=== PATIENT | male | born 1965 | race African-American/Black ===

== ENCOUNTER 2020-09-07 11:06 | Emergency (ER) | payer OTHER ==
[~2020-09-07] VITALS: Ht 170.2 cm; Wt 75.0 kg
[~2020-09-07 11:06] MED LIST: Bisacodyl PO; CLIN300C12 MT; Docusate Sodium PO; HYDR25SU38 RC; MED4 MT; OMEP20CA14 PO
[2020-09-07 11:18] VITALS: BP 134/89
== END 2020-09-07 15:14 | disposition left against medical advice (07) ==
LOC: ER 11:06
DX: Z53.21 Procedure and treatment not carried out due to patient leaving prior to being seen by health care provider (principal)

== ENCOUNTER 2024-01-13 09:47 | Emergency (ER) | payer OTHER ==
[~2024-01-13] VITALS: Ht 170.2 cm; Wt 107.0 kg
[~2024-01-13 09:47] MED LIST changes: +CLIN-194 MT; -CLIN300C12 MT; -MED4 MT; +METH4TAB95 MT
[2024-01-13 09:53] VITALS: O2SAT 97
[2024-01-13 09:56] VITALS: BP 143/83; PULSE 77; RESP 16; TEMP 98.4; O2SAT 100
[2024-01-13] MEDS: ACETAMINOPHEN 500MG TABLET PO ONE (13:38)
[2024-01-13] MEDS ORDERED: ACET-2708 MT (13:38)
== END 2024-01-13 14:16 | disposition home or self-care (01) ==
LOC: ER 09:47
DX: M25.562 Pain in left knee (principal); I10 Essential (primary) hypertension; J45.909 Unspecified asthma, uncomplicated; Z79.899 Other long term (current) drug therapy
CPT/HCPCS: 73562; 99283

== ENCOUNTER 2024-03-28 14:22 | Emergency (ER) | payer MEDICAID, OTHER ==
[~2024-03-28] VITALS: Ht 170.2 cm; Wt 108.0 kg
[~2024-03-28 14:22] MED LIST changes: +ACET-2708 MT
[2024-03-28 14:26] VITALS: O2SAT 100
[2024-03-28 14:27] VITALS: BP 141/82; PULSE 105; RESP 16; TEMP 36.8; O2SAT 98
[2024-03-28 15:35] LABS: BASOPHILS % 0.6 % (0.0-2.0); EOSINOPHILS % 4.4 % (0.0-5.0); HEMATOCRIT. 38.2 % (42.0-52.0); HEMOGLOBIN. 12.2 g/dL (14.0-18.0); LYMPHOCYTES % 24.8 % (20.0-50.0); MEAN CORPUSCULAR HEMOGLOBIN 26.2 pg (28.0-32.0); MEAN CORPUSCULAR VOLUME 81.9 fL (80.0-94.0); MONOCYTES % 10.9 % (2.0-8.0); NEUTROPHILS % 59.3 % (40.0-76.0); PLATELET 263 x1000/uL (130-400); RED BLOOD CELL COUNT 4.66 mill/uL (4.7-6.1); RED CELL DISTRIBUTION WIDTH 18.2 % (11.6-14.6); WHITE BLOOD COUNT 6.5 x1000/uL (4.5-11.0)
[2024-03-28 15:50] LABS: CHLORIDE 107 mEq/L (98-107); POTASSIUM 4.1 mEq/L (3.5-5.1); SODIUM 140 mEq/L (136-145)
[2024-03-28 15:51] LABS: CARBON DIOXIDE 26 mEq/L (21-32)
[2024-03-28 15:52] LABS: CALCIUM 9.1 mg/dL (8.7-10.4)
[2024-03-28 15:57] LABS: GLUCOSE 259 mg/dL (70-105); UREA NITROGEN BLOOD 12 mg/dL (9-23)
[2024-03-28 18:15] LABS: CLARITY URINE CLEAR (CLEAR); COLOR URINE YELLOW (YELLOW); GLUCOSE URINE 3+ (NEGATIVE); KETONES URINE NEGATIVE (NEGATIVE); LEUKOCYTE ESTERASE URINE NEGATIVE (NEGATIVE); NITRITE URINE NEGATIVE (NEGATIVE); OCCULT BLOOD URINE NEGATIVE (NEGATIVE); PH URINE 5.5 (4.5-8.0); PROTEIN URINE NEGATIVE (NEGATIVE); SPECIFIC GRAVITY URINE 1.042 (1.005-1.030); UROBILINOGEN URINE 0.2 E.U./dL (0.2-1.0)
[2024-03-28] MEDS ORDERED: ALBU18HF2 IH (18:32)
[2024-03-28] MEDS ORDERED: GUAI-450 MT (18:32)
[2024-03-28] MEDS ORDERED: P50 MT (18:32)
[2024-03-28 19:23] LABS: BACTERIA URINE 1+; SQUAMOUS EPITHELIAL CELL URINE 1+ /lpf (RARE/1+)
[2024-03-28 19:24] LABS: RBC URINE 0-2 /hpf (0-2); YEAST URINE FEW
== END 2024-03-28 18:44 | disposition home or self-care (01) ==
LOC: ER 14:22
DX: J20.9 Acute bronchitis, unspecified (principal); I10 Essential (primary) hypertension; J45.909 Unspecified asthma, uncomplicated; Z79.899 Other long term (current) drug therapy
CPT/HCPCS: 36415; 71045; 80048; 81003; 85025; 99284

== ENCOUNTER 2024-04-03 14:57 | Emergency (ER) | payer MEDICAID, OTHER ==
[~2024-04-03] VITALS: Ht 170.2 cm; Wt 111.6 kg
[~2024-04-03 14:57] MED LIST changes: +ALBU18HF2 IH; +GUAI-450 MT; +P50 MT
[2024-04-03 14:59] VITALS: O2SAT 100
[2024-04-03 15:46] LABS: BASOPHILS % 0.2 % (0.0-2.0); DIFFERENTIAL COMMENT 0; HEMATOCRIT. 37.8 % (42.0-52.0); HEMOGLOBIN. 11.8 g/dL (14.0-18.0); LYMPHOCYTES % 9.2 % (20.0-50.0); MEAN CORPUSCULAR HEMOGLOBIN 24.9 pg (28.0-32.0); MEAN CORPUSCULAR HGB CONC 31.2 g/dL (31.0-37.0); MEAN CORPUSCULAR VOLUME 79.8 fL (80.0-94.0); MEAN PLATELET VOLUME 7.1 fl (7.4-10.4); NEUTROPHILS % 89.6 % (40.0-76.0); PLATELET 364 x1000/uL (130-400); RED BLOOD CELL COUNT 4.73 mill/uL (4.7-6.1); RED CELL DISTRIBUTION WIDTH 17.5 % (11.6-14.6); WHITE BLOOD COUNT 7.9 x1000/uL (4.5-11.0)
[2024-04-03 15:53] LABS: CARBON DIOXIDE 22 mEq/L (21-32); CHLORIDE 101 mEq/L (98-107); SODIUM 137 mEq/L (136-145)
[2024-04-03 15:54] LABS: CALCIUM 9.1 mg/dL (8.7-10.4)
[2024-04-03 15:58] LABS: CREATININE 1.1 mg/dL (0.6-1.3)
[2024-04-03 15:59] LABS: UREA NITROGEN BLOOD 9 mg/dL (9-23)
[2024-04-03 16:00] LABS: ALANINE AMINOTRANSFERASE 33 IU/L (10-49); ALBUMIN 4.1 g/dL (3.2-4.8); ASPARTATE AMINOTRANSFERASE 19 IU/L (<34)
[2024-04-03 16:01] LABS: BILIRUBIN DIRECT 0.1 mg/dL (<=3.0); BILIRUBIN TOTAL 0.3 mg/dL (0.1-1.0); PROTEIN TOTAL 7.4 g/dL (6.0-8.3)
[2024-04-03 16:05] LABS: GLUCOSE 469 mg/dL (70-105)
[2024-04-03] MEDS: MAGNESIUM/ALUMINUM HYDROXIDE/SIMETHICONE 30ML UDC PO STA (16:28)
[2024-04-03] MEDS: FAMOTIDINE 20MG TABLET PO ONE (16:28)
[2024-04-03 16:32] LABS: TROPONIN I HIGH SENSITIVITY 6 ng/L (3.0-53)
[2024-04-03] MEDS: INSULIN REGULAR (HUMULIN R) 1000UNITS/10ML VIAL SUBCUT ONE (16:36)
[2024-04-03] MEDS: VISCOUS LIDOCAINE 2% 15 ML UDC MM STA (16:36)
[2024-04-03 16:43] LABS: CLARITY URINE CLEAR (CLEAR); COLOR URINE YELLOW (YELLOW); GLUCOSE URINE 3+ (NEGATIVE); KETONES URINE NEGATIVE (NEGATIVE); LEUKOCYTE ESTERASE URINE NEGATIVE (NEGATIVE); NITRITE URINE NEGATIVE (NEGATIVE); OCCULT BLOOD URINE NEGATIVE (NEGATIVE); PROTEIN URINE NEGATIVE (NEGATIVE); UROBILINOGEN URINE 0.2 E.U./dL (0.2-1.0)
[2024-04-03 17:32] LABS: BACTERIA URINE NONE SEEN; RBC URINE NONE SEEN /hpf (0-2); SQUAMOUS EPITHELIAL CELL URINE RARE /lpf (RARE/1+); WBC URINE NONE SEEN /hpf (0-2)
[2024-04-03] MEDS ORDERED: IBUP-2028 MT (17:49)
[2024-04-03 18:03] VITALS: BP 148/86; PULSE 90; RESP 16; TEMP 37.2; O2SAT 100
[2024-04-03] MEDS ORDERED: METF-414 MT (18:25)
== END 2024-04-03 18:08 | disposition home or self-care (01) ==
LOC: ER 15:03
DX: K80.20 Calculus of gallbladder without cholecystitis without obstruction (principal); I10 Essential (primary) hypertension; J45.909 Unspecified asthma, uncomplicated; Z79.899 Other long term (current) drug therapy
CPT/HCPCS: 99285; 74176; 71045; 80076; 80048; 81003; 82962; 83690; 85025; 84484; 36415; 93005; 96372; J1815

== ENCOUNTER 2024-07-02 07:11 | Emergency (ER) | payer MEDICAID ==
[~2024-07-02] VITALS: Ht 172.7 cm; Wt 113.0 kg
[~2024-07-02 07:11] MED LIST changes: +IBUP-2028 MT; +METF-414 MT
[2024-07-02 07:16] VITALS: O2SAT 100
[2024-07-02] MEDS ORDERED: METH-653 MT (07:32)
[2024-07-02 07:39] VITALS: BP 150/88; PULSE 84; RESP 18; TEMP 37; O2SAT 99
[2024-07-02] MEDS: ACETAMINOPHEN 325MG TABLET PO ONE (07:39)
== END 2024-07-02 07:44 | disposition home or self-care (01) ==
LOC: ER 07:11
DX: M54.50 Low back pain, unspecified (principal); I10 Essential (primary) hypertension; J45.909 Unspecified asthma, uncomplicated
CPT/HCPCS: 99283

== ENCOUNTER 2024-07-22 06:57 | Emergency (ER) | payer MEDICAID, OTHER ==
[~2024-07-22] VITALS: Ht 167.6 cm; Wt 91.0 kg
[~2024-07-22 06:57] MED LIST changes: +METH-653 MT
[2024-07-22 07:28] VITALS: O2SAT 98
[2024-07-22] MEDS: LIDOCAINE 5% PATCH TOP SCH (08:45)
[2024-07-22] MEDS: METHOCARBAMOL 500MG TABLET PO ONE (08:45)
[2024-07-22] MEDS: KETOROLAC 30MG/ML VIAL IM ONE (08:45)
[2024-07-22] MEDS ORDERED: IBUP-2029 MT (10:45)
[2024-07-22] MEDS ORDERED: METH-653 MT (10:45)
[2024-07-22] MEDS ORDERED: LIDO700A30 TP (10:45)
[2024-07-22 11:21] VITALS: BP 131/80; PULSE 90; RESP 20; TEMP 36.7; O2SAT 98
== END 2024-07-22 11:21 | disposition home or self-care (01) ==
LOC: ER 06:57
DX: M48.061 Spinal stenosis, lumbar region without neurogenic claudication (principal); M51.372 Other intervertebral disc degeneration, lumbosacral region with discogenic back pain and lower extremity pain; J45.909 Unspecified asthma, uncomplicated; I10 Essential (primary) hypertension; Z79.899 Other long term (current) drug therapy
CPT/HCPCS: 72131; 96372; 99285; J1885; Z7610; A4606

== ENCOUNTER 2024-08-13 20:19 | Emergency (ER) | payer MEDICAID ==
[~2024-08-13] VITALS: Ht 170.2 cm; Wt 113.5 kg
[~2024-08-13 20:19] MED LIST changes: +IBUP-2029 MT; +LIDO700A30 TP
[2024-08-13 20:25] VITALS: O2SAT 99
[2024-08-13 21:44] LABS: BASOPHILS % 0.6 % (0.0-2.0); EOSINOPHILS % 5.2 % (0.0-5.0); HEMATOCRIT. 38.1 % (42.0-52.0); HEMOGLOBIN. 12.0 g/dL (14.0-18.0); LYMPHOCYTES % 33.8 % (20.0-50.0); MEAN PLATELET VOLUME 6.5 fl (7.4-10.4); MONOCYTES % 5.9 % (2.0-8.0); NEUTROPHILS % 54.5 % (40.0-76.0); PLATELET 276 x1000/uL (130-400); RED BLOOD CELL COUNT 4.74 mill/uL (4.7-6.1); RED CELL DISTRIBUTION WIDTH 19.5 % (11.6-14.6)
[2024-08-13 21:54] LABS: INR 1.0
[2024-08-13 21:55] LABS: CREATININE 1.1 mg/dL (0.6-1.3)
[2024-08-13 21:56] LABS: CREATINE KINASE MB FRACTION 3.2 ng/mL (0.5-3.6); TROPONIN I HIGH SENSITIVITY 7 ng/L (3.0-53); UREA NITROGEN BLOOD 11 mg/dL (9-23)
[2024-08-13 21:58] LABS: PHOSPHORUS 3.4 mg/dL (2.5-4.9)
[2024-08-13] MEDS: KETOROLAC 30MG/ML VIAL IM ONE (22:28)
[2024-08-13] MEDS: FAMOTIDINE 20MG TABLET PO ONE (22:29)
[2024-08-13] MEDS: ONDANSETRON 4MG ODT PO ONE (22:29)
[2024-08-13] MEDS: MAGNESIUM/ALUMINUM HYDROXIDE/SIMETHICONE 30ML UDC PO ONE (22:29)
[2024-08-13 22:36] VITALS: BP 133/87; PULSE 90; RESP 18; TEMP 36.9; O2SAT 99
== END 2024-08-14 00:20 | disposition home or self-care (01) ==
LOC: ER 20:19
DX: K21.9 Gastro-esophageal reflux disease without esophagitis (principal); M54.30 Sciatica, unspecified side; I10 Essential (primary) hypertension; J45.909 Unspecified asthma, uncomplicated; Z79.84 Long term (current) use of oral hypoglycemic drugs; Z79.899 Other long term (current) drug therapy
CPT/HCPCS: 99285; 71045; 80048; 82550; 82553; 83735; 84100; 85025; 85610; 85730; 84484; 36415; 93005; 96372; J1885; Q0162